=== PATIENT | male | born 1955 | race African-American/Black ===

== ENCOUNTER 2017-04-18 11:47 | Inpatient (IN) ==
[2017-04-18] MEDS ORDERED: ASPIRIN PO STA (12:12)
[2017-04-18 12:21] LABS: MANUAL DIFF NEEDED? NO
--- NOTE | 2017-04-18 12:26 | EKG Report ---
Test Performed on : 04/18/2017 11:58:56 AM Test Reason : chest pain Blood Pressure : / mmHG Vent. Rate : 078 BPM Atrial Rate : 078 BPM P-R Int : 146 ms QRS Dur : 084 ms QT Int : 354 ms P-R-T Axes : 079 073 081 degrees QTc Int : 403 ms Normal sinus rhythm. with sinus arrhythmia. ST elevation, consider early repolarization, pericarditis, or injury Abnormal ECG When compared with ECG of 11-NOV-2016 14:08, No significant change was found Unconfirmed Result
[2017-04-18 12:27] LABS: BASO% 0.2 % (0.0-0.8); EOS# 0.17 X1000 (0.0-0.7); EOS% 4.1 % (0.0-10.0); HEMATOCRIT 46.9 % (42.0-52.0); HEMOGLOBIN 16.2 g/dL (14.0-18.0); LYMPH# 1.43 X1000 (1.2-3.4); LYMPH% 34.5 % (20.5-51.1); MCH 28.9 PG (27-31); MCHC 34.5 g/dL (33-37); MCV 83.6 FL (81-99); MONO# 0.61 X1000 (0.11-0.59); MONO% 14.7 % (1.7-9.3); MPV 10.9 FL (7.4-10.4); NEUT% 46.5 % (42.2-75.2); PLT 209 X1000 (130-400); RBC 5.61 XMIL (4.7-6.1)
--- NOTE | 2017-04-18 12:29 | Diag Imaging Result Doc PS360 ---
EXAM: CHEST-2 VIEWS HISTORY: CP TECHNIQUE: Two views COMPARISON: 03/11/2016 FINDINGS: The lungs are hyperexpanded. There is an increased AP diameter to the chest. There are large bulla bilaterally. Heart is not enlarged. The urinary vessels are small. No consolidation. IMPRESSION: Severe emphysema. Electronically signed by Desmond Domínguez 04/18/2017 12:27 PM
[2017-04-18 12:44] LABS: INR 0.99; PROTIME 10.4 Seconds (9.2-11.7); PTT 29.9 Seconds (22.0-36.0)
[2017-04-18 12:45] LABS: AGAP 12; ALBUMIN 4.6 g/dL (3.5-5.0); ALKALINE PHOSPHATASE 102 U/L (32-122); BUN 10 mg/dL (8-22); CALCIUM 9.7 mg/dL (8.8-10.2); CHLORIDE 100 mmol/L (98-107); COSMO 278; GOT 52 U/L (10-34); GPT 50 U/L (10-44); MAGNESIUM 1.9 mg/dL (1.5-2.7); POTASSIUM 4.3 mmol/L (3.5-5.1); SODIUM 140 mmol/L (136-145); TCO2 28 mmol/L (25-35); TOTAL BILIRUBIN 0.61 mg/dL (0.20-1.00); TOTAL PROTEIN 8.6 g/dL (6.3-8.3)
[2017-04-18 12:46] LABS: CK PROFILE 232 U/L (24-204)
[2017-04-18 13:00] LABS: CK INDEX 1.2 (0.0-2.5); CK-MB 2.69 ng/mL (0.0-5.0)
--- NOTE | 2017-04-18 13:04 | PROVIDER DOCUMENTATION ---
This chart was entered by Faizan Rangel Scribe, acting as scribe for Lloyd Barillas MD. HPI-Chest Pain - General Chief Complaint: Chest Pain Stated Complaint: cp Time Seen by Provider: 04/18/17 12:03 Source: patient Allergies/Adverse Reactions: Patient Allergies Allergy/AdvReac Type Severity Reaction Status Date / Time No Known Allergies Allergy Verified 03/11/16 10:38 Home Medications: Home Medication List Medication Instructions Recorded Confirmed Last Taken Type NK [No Home Medications] 04/18/17 04/18/17 Unknown History - History of Present Illness-CP Nature of Presenting Problem: Patient is a 61 y/o M that presents to the ER with chest pain( substernal) x 2 days. Patient reports feeling pressure type pain. Reports shortness of breath. Denies n/v, dizziness, or fever/chills. Smokes daily and has cardiac history but unsure what it is Location: reports: substernal Chest Pain Radiation: reports: no radiation Quality of Pain: reports: pressure Severity in ED: moderate Onset/Duration: abrupt, 2 days ago Timing: improving, intermittent Context/Activities at Onset: reports: none Modifying Factors: improves with: nothing Associated Symptoms: reports: shortness of breath. denies: abdominal pain, fever/chills, nausea, vomiting Nitro Today/Relief: no nitro taken today Aspirin Treatment Today: 325 mg x 1, provided by ED Prior Chest Pain/Cardiac Workup: reports: other (prior but patient doesnt' know what heart history he has) Similar Symptoms Previously?: Yes Recently Seen Here or By Another Healthcare Provider: No Review of Systems - Adult - REVIEW OF SYSTEMS - ADULT Constitutional: denies: chills, fever Eyes: reports: no symptoms reported Ears, Nose, Mouth & Throat: reports: no symptoms reported Cardiovascular: reports: chest pain. denies: orthopnea, palpitations, syncope Respiratory: reports: shortness of breath. denies: cough, wheezing Gastrointestinal: denies: abdominal pain, nausea, vomiting Genitourinary: reports: no symptoms reported Musculoskeletal: reports: no symptoms reported Integumentary: reports: no symptoms reported Neurological: denies: dizziness/vertigo, headache/migraines Psychiatric: reports: no symptoms reported Endocrine: reports: no symptoms reported Hematologic/Lymphatic: reports: no symptoms reported Allergic/Immunologic: reports: no symptoms reported All Other Systems: Reviewed and Negative Past History - Adult - PAST MEDICAL HISTORY-ADULT Review of Records: reports: Old Records Reviewed, Nursing Assessment Review, Medications Reviewed Cardiovascular: reports: HTN Respiratory: reports: asthma, COPD - PRIOR SURGERIES/PROCEDURES Surgical/Procedure History: reports: none - PRIOR HOSPITALIZATIONS Prior Hospitalizations: reports: none - IMMUNIZATION STATUS Childhood Immunizations: See Nurse Assessment Flu Vaccine: See Nurse Assessment - FAMILY HISTORY Family History: reviewed, not pertinent - SOCIAL HISTORY Smoking: cigarettes, greater than 1 pack/day Alcohol Use Frequency: occasionally Living Situation: family Physical Exam-General - PHYSICAL EXAM-ADULT Initial Vital Signs Reviewed: Yes - CONSTITUTIONAL General Appearance: alert, no apparent distress - EYES Eyes: PERRL/EOMI, pink conjunctivae - HEAD, EARS, NOSE, MOUTH & THROAT HENMT: normocephalic/atraumatic, moist mucous membranes, normal ENT inspection - NECK Neck: non-tender, full range of motion, normal inspection - RESPIRATORY Respiratory: chest non-tender, lungs clear, normal breath sounds, no respiratory distress, no accessory muscle use - CARDIOVASCULAR Cardiovascular: regular rate, rhythm, no edema, no JVD, no murmur - GASTROINTESTINAL (ABDOMEN) Abdominal Exam: normal bowel sounds, non tender, soft - MUSCULOSKELETAL Back Exam: no CVA tenderness, no vertebral tenderness Extremity: normal range of motion, normal inspection, no pedal edema, normal capillary refill, pelvis stable - SKIN Integumentary: normal color, warm/dry - NEUROLOGIC Neurologic: housekeeping staff II-XII nml as tested, no motor/sensory deficits - PSYCHIATRIC Psych/Mental Status: normal mood/affect, normal thought content, normal thought process, oriented x 3 Progress - PLAN OF CARE/RESULTS Progress/Plan/Lab Results: Vital Signs - 8 hr 04/18/17 11:51 Temperature 97.9 F Pulse Rate 82 Respiratory Rate 20 Blood Pressure 114/76 O2 Sat by Pulse Oximetry 94 L Laboratory Results - last 24 hr 04/18/17 04/18/17 04/18/17 12:10 12:10 12:10 WBC 4.14 L RBC 5.61 Hgb 16.2 Hct 46.9 MCV 83.6 MCH 28.9 MCHC 34.5 RDW Std Deviation 14.8 H Plt Count 209 MPV 10.9 H Immature Gran % (Auto) 0.0 Neut % (Auto) 46.5 Lymph % (Auto) 34.5 [place] % (Auto) 14.7 H Eos % (Auto) 4.1 Baso % (Auto) 0.2 Immature Gran # (Auto) 0.00 Neut # (Auto) 1.92 Lymph # (Auto) 1.43 [place] # (Auto) 0.61 H Eos # (Auto) 0.17 Baso # (Auto) 0.01 PT 10.4 INR 0.99 PTT (Actin FS) 29.9 Sodium 140 Potassium 4.3 Chloride 100 Carbon Dioxide 28 Anion Gap 12 BUN 10 Creatinine 0.8 Estimated GFR/1.73 m2 > 60 BUN/Creatinine Ratio 13 Glucose 92 Calculated Osmolality 278 Calcium 9.7 Magnesium 1.9 Total Bilirubin 0.61 AST 52 H ALT 50 H Alkaline Phosphatase 102 Creatine Kinase 232 H Troponin T Total Protein 8.6 H Albumin 4.6 Globulin 4.0 Albumin/Globulin Ratio 1.1 04/18/17 12:10 WBC RBC Hgb Hct MCV MCH MCHC RDW Std Deviation Plt Count MPV Immature Gran % (Auto) Neut % (Auto) Lymph % (Auto) [place] % (Auto) Eos % (Auto) Baso % (Auto) Immature Gran # (Auto) Neut # (Auto) Lymph # (Auto) [place] # (Auto) Eos # (Auto) Baso # (Auto) PT INR PTT (Actin FS) Sodium Potassium Chloride Carbon Dioxide Anion Gap BUN Creatinine Estimated GFR/1.73 m2 BUN/Creatinine Ratio Glucose Calculated Osmolality Calcium Magnesium Total Bilirubin AST ALT Alkaline Phosphatase Creatine Kinase Troponin T < 0.010 Total Protein Albumin Globulin Albumin/Globulin Ratio Orders Category Date Time Status Cardiac Monitoring DIRECTED Care 04/18/17 12:13 Active Saline Loc NOW Care 04/18/17 12:13 Active CHEST-2 VIEWS [RAD] Stat Exams 04/18/17 12:13 Completed CBC WITH ELECTRONIC DIFF [HEME] Stat Lab 04/18/17 12:10 Completed CK PROFILE [SP CHEM] Stat Lab 04/18/17 12:10 Results COMPREHENSIVE METABOLIC PANEL [CHEM] Stat Lab 04/18/17 12:10 Results D-DIMER [CHEM] Stat Lab 04/18/17 12:10 Received MAGNESIUM [CHEM] Stat Lab 04/18/17 12:10 Results PRO B-NATRIURETIC PEPTIDE Stat Lab 04/18/17 12:10 Received PROTIME WITH INR [COAG] Stat Lab 04/18/17 12:10 Completed PTT [COAG] Stat Lab 04/18/17 12:10 Completed TROPONIN T Stat Lab 04/18/17 12:10 Completed Aspirin Med 04/18/17 12:12 Discontinued 325 mg PO STAT STA EKG [EKG] Stat Ther 04/18/17 11:54 Draft Vital Signs Temp Pulse Resp BP Pulse Ox 04/18/17 11:51 97.9 F 82 20 114/76 94 L No Known Allergies Allergy (Verified 03/11/16 10:38) NK [No Home Medications] 04/18/17 Laboratory 04/18/17 04/18/17 04/18/17 12:10 12:10 12:10 WBC RBC Hgb Hct MCV MCH MCHC RDW Std Deviation Plt Count MPV Immature Gran % (Auto) Neut % (Auto) Lymph % (Auto) [place] % (Auto) Eos % (Auto) Baso % (Auto) Immature Gran # (Auto) Neut # (Auto) Lymph # (Auto) [place] # (Auto) Eos # (Auto) Baso # (Auto) PT 10.4 INR 0.99 PTT (Actin FS) 29.9 Sodium 140 Potassium 4.3 Chloride 100 Carbon Dioxide 28 Anion Gap 12 BUN 10 Creatinine 0.8 Estimated GFR/1.73 m2 > 60 BUN/Creatinine Ratio 13 Glucose 92 Calculated Osmolality 278 Calcium 9.7 Magnesium 1.9 Total Bilirubin 0.61 AST 52 H ALT 50 H Alkaline Phosphatase 102 Creatine Kinase 232 H Troponin T < 0.010 Total Protein 8.6 H Albumin 4.6 Globulin 4.0 Albumin/Globulin Ratio 1.1 04/18/17 12:10 WBC 4.14 L RBC 5.61 Hgb 16.2 Hct 46.9 MCV 83.6 MCH 28.9 MCHC 34.5 RDW Std Deviation 14.8 H Plt Count 209 MPV 10.9 H Immature Gran % (Auto) 0.0 Neut % (Auto) 46.5 Lymph % (Auto) 34.5 [place] % (Auto) 14.7 H Eos % (Auto) 4.1 Baso % (Auto) 0.2 Immature Gran # (Auto) 0.00 Neut # (Auto) 1.92 Lymph # (Auto) 1.43 [place] # (Auto) 0.61 H Eos # (Auto) 0.17 Baso # (Auto) 0.01 PT INR PTT (Actin FS) Sodium Potassium Chloride Carbon Dioxide Anion Gap BUN Creatinine Estimated GFR/1.73 m2 BUN/Creatinine Ratio Glucose Calculated Osmolality Calcium Magnesium Total Bilirubin AST ALT Alkaline Phosphatase Creatine Kinase Troponin T Total Protein Albumin Globulin Albumin/Globulin Ratio Result Diagrams: 04/18/17 12:10 04/18/17 12:10 - EKG 1 Time of EKG reading by physician:: 12:03 EKG Read and Signed by:: Lloyd Barillas EKG Interpretation (*Must complete 3 of following elements*): Abnormal Rate: 78 Rhythm: NSR [place]: normal QRS: normal VA Interval: normal ST Wave: elevated (ST Lead II, III, AVF) - XRAY 1 XRAY Study: Chest Impression: Abnormal XRAY Interpretation: severe emphysema - CONSULTS/PCP/HOSPITALIST Notification #1 *Consult/PCP/Hospitalist*: Krish with Hospitalist Time Discussed: 12:58 Reason/Comments: accepted Consult Disposition: Will see in ED, Admit Departure - Departure Date of Disposition Decision: 04/18/17 Time of Disposition Decision: 12:58 DIAGNOSIS: ACS (acute coronary syndrome), Chest pain in adult Disposition: ADMITTED INPATIENT 09 Certified Medical Emergency: Emergent Condition: Stable Referrals and Follow-Ups: None,PCP [Clinical Support] - - Critical Care Note This patient required my direct & personal management of CC.: No Attestation - Physician/ DREA Attestation The physician spent face to face time with patient:: Yes Advanced Practice Provider documentation review:: Supervising physician onsite and consulted in the evaluation and care of this patient. The physician did have a face to face encounter with the patient. This chart was documented by the indicated scribe, (Faizan Rangel, Terrance) and accurately reflects the services I performed and decisions made by me, Lloyd Barillas MD, as attested by the provider's signature.
[2017-04-18] MEDS ORDERED: ZOFRAN IV PRN (13:32)
[2017-04-18] MEDS ORDERED: TYLENOL PO PRN (13:32)
[2017-04-18] MEDS ORDERED: DUONEB (A & A) INH PRN (14:33)
[2017-04-18] MEDS ORDERED: ATIVAN IV PRN (14:35)
[2017-04-18] MEDS ORDERED: M.V.I.-12 10 ML, FOLIC ACID 1 MG, MAGNESIUM SULFATE 1 GM, THIAMINE 100 MG in NS 1,000 ML IV SCH (14:45)
[2017-04-18 15:33] LABS: FREE T4 0.82 ng/dL (0.93-1.70)
--- NOTE | 2017-04-18 15:46 | HISTORY AND PHYSICAL ---
CHIEF COMPLAINT: Chest pain. HISTORY OF PRESENT ILLNESS: Mr. Simmons is a 61-year-old gentleman with a history of long-standing alcohol and nicotine dependence as well as COPD with medical noncompliance who comes to the hospital today with 2 days of progressively worsening chest pain that began at rest. This is not associated with diaphoresis or nausea or vomiting, the pain is epigastric to midsternal, intermittent in nature and nonradiating. He states that he has chronic shortness of breath because of his COPD which is untreated, he is supposed to be wearing oxygen which he does not, he continues to smoke 2 packs of cigarettes a day and drinks around half a case of beer a day. He denies any fever, chills, cough or congestion. No overt abdominal pain , diarrhea. He does report urinary hesitancy. No lower extremity edema. No PND. When he got to the ER he had labs and diagnostics done. EKG showed sinus rhythm with diffuse ST-elevation likely consistent with early repolarization and unchanged from previous EKGs. His labs show alcohol level of 72 with elevated transaminases and a CK of 232 with normal troponin. As such, he is going to be admitted for further treatment and evaluation on observation basis. PAST MEDICAL HISTORY: 1. COPD. 2. Alcohol dependence. 3. Nicotine dependence. 4. Medical noncompliance. SURGICAL HISTORY: None. SOCIAL HISTORY: Patient smokes 2 packs a day. He drinks half a case of beer a day and occasional liquor. He smokes occasional marijuana. He is . His is not at the bedside currently. FAMILY HISTORY: Noncontributory. REVIEW OF SYSTEMS: Fourteen-point review of systems obtained and found to be negative with the exception of the HPI. HOME MEDICATIONS: None. ALLERGIES: None. PHYSICAL EXAMINATION: VITAL SIGNS: Blood pressure 135/89, heart rate 85, respiratory rate 18, O2 saturation 95% on room air, temperature is 98.2 degrees. GENERAL: This is a frail and emaciated appearing 61-year-old gentleman lying in hospital bed in no acute distress. NEUROLOGIC: Nonfocal. HEENT: Head is atraumatic and normocephalic. His pupils are equal, round, and reactive to light. Oral mucosa is dry. Trachea is midline. There is no JVD. CHEST: Extremely diminished throughout but no adventitious lung sounds. CV: Regular rate and rhythm. S1-S2 is noted. No murmurs. GI: Epigastric tenderness to palpation. Belly is soft and nondistended. Bowel sounds are hypoactive. EXTREMITIES: No edema, clubbing or cyanosis. Pulses are palpable bilaterally. DIAGNOSTIC DATA: Chest x-ray shows severe emphysema, no acute changes. EKG normal sinus rhythm with diffuse ST-elevation unchanged from previous EKG. WBC 4.14, hemoglobin 16.2, hematocrit 46.9, platelet count 209,000, INR 0.99, PT 10.4, D-dimer negative. Sodium 140, potassium 4.3, chloride 100, CO2 28, anion gap 12, BUN 10, creatinine 0.8, glucose 92, calcium 9.7, magnesium 1.9. Total bilirubin 0.61, AST 52, ALT 50, alkaline phosphatase 102, CK 232, troponin negative. Albumin is 4.6. Alcohol level 72. ASSESSMENT AND PLAN: 1. Chest pain: Atypical, bordering on noncardiac. More than likely this is gastritis or peptic ulcer disease secondary to alcohol and nicotine dependence. We will rule out myocardial infarction with cardiac enzymes, check an echocardiogram and make sure he is on aspirin. Given that this is likely GI in nature, we are going to add Protonix b.i.d. and IV fluids and monitor. He would likely benefit from an EGD but, as he denies any melena or hematemesis, this can be done outpatient. 2. Chronic obstructive pulmonary disease: He does not appear to be in exacerbation, lungs are clear, chest x-ray does not show anything acute and pulse ox is within normal limits. We will continue his oxygen and add DuoNeb therapy. 3. Alcohol and nicotine dependence: Patient has been highly advised to quit drinking and smoking. We will continue daily cessation education. We will add a Librium taper and p.r.n. IV Ativan as well as a nicotine patch and a banana bag. We will check folate , B 12 and thyroid function in the morning. 4. Deep vein thrombosis prophylaxis with Lovenox. Further recommendations to follow. Patient seen and examined by me face to face, all the lab work, vitals signs, images were reviewed, Patient has a past medical history of alcohol and tobacco abuse, he has been felling short of breath lately, epigastric pain, I don't think this is a cardiac like pain but we will follow the enzymes, I will talk to the hospital social worker about sending this patient to a detox center , I agree with the assessment and plan, Sergey Ty MD Dictated by CLAUDIA Umaña for Sergey Ogden MD cc: CLAUDIA Umaña MD MTDD
[2017-04-18 16:03] LABS: CK INDEX 1.2 (0.0-2.5); CK-MB 2.53 ng/mL (0.0-5.0)
[2017-04-18] MEDS: NICODERM PATCH TD SCH (16:11)
[2017-04-18] MEDS: SODIUM CHLORIDE 0.9% INJ SCH (16:12)
[2017-04-18] MEDS: PROTONIX IV SCH (16:12)
[2017-04-18] MEDS: LIBRIUM PO SCH ×2 (16:12→22:19)
[2017-04-18 16:59] LABS: URINE CULTURE NEEDED? NO; URINE MICRO REVIEW NEEDED? NO; URINE SOURCE CLEAN CATCH
[2017-04-18 17:06] LABS: BILIRUBIN URINE NEGATIVE (NEGATIVE); BLOOD URINE NEGATIVE (NEGATIVE); COLOR YELLOW; GLUCOSE URINE NEGATIVE (NEGATIVE); LEUKOCYTES URINE NEGATIVE (NEGATIVE); NITRITE URINE NEGATIVE (NEGATIVE); PROTEIN URINE NEGATIVE (NEGATIVE); SP GRAVITY URINE 1.012; TURBIDITY URINE CLEAR (CLEAR); UR EPITHELIAL CELLS <10 /HPF (<10); URINE BACTERIA NEGATIVE /HPF; URINE RBC <10 /HPF (<10); URINE WBC <10 /HPF (<10); UROBILINOGEN URINE NORMAL (NORMAL)
--- NOTE | 2017-04-18 17:08 | ECHO REPORT ---
ORDER DATE: 04/18/2017 INDICATION: Chest pain. FINDINGS: 1. The right atrium appears normal in size. 2. There is mild tricuspid regurgitation. The RV systolic pressure is measured at 37. 3. There is very poor visualization of the right ventricle. On some images it does appear to be somewhat enlarged. RV systolic function appears to be preserved, but again is very poorly visualized. 4. No significant pulmonic insufficiency. 5. Normal left atrial size at 2.6. 6. No mitral valve prolapse. Trace mitral regurgitation. 7. Normal LV size, end-diastolic dimension of 5.2. Normal wall thicknesses with a posterior and interventricular septal thickness of 0.7 cm each. Normal LV systolic function. Estimated EF is greater 55%. This is a very difficult quality study with very poor endocardial border resolution. Segmental wall motion analysis is extremely poor. 8. The aortic valve appears to open well with no evidence of significant stenosis or insufficiency. 9. The aorta appears normal in visualized segments. 10. No pericardial effusion identified. cc: MD Lino Cunha CRNP
[2017-04-18 17:28] LABS: UR AMPHETAMINES QUAL NONE DETECTED (NONE DETECT); UR BARBITUATES QUAL NONE DETECTED (NONE DETECT); UR BENZODIAZEPIN QUAL NONE DETECTED (NONE DETECT); UR CANNABINOIDS QUAL PRESUMPTIVE POSITIVE (NONE DETECT); UR COCAINE QUAL NONE DETECTED (NONE DETECT); UR METHADONE QUAL NONE DETECTED (NONE DETECT); UR OPIATES QUAL NONE DETECTED (NONE DETECT); UR OXYCODONE QUAL NONE DETECTED (NONE DETECT); UR PCP QUAL NONE DETECTED (NONE DETECT)
[2017-04-18] MEDS: DUONEB (A & A) INH SCH ×3 (17:33→23:30)
[2017-04-18] MEDS: M.V.I.-12 10 ML, FOLIC ACID 1 MG, MAGNESIUM SULFATE 1 GM, THIAMINE 100 MG in NS 1,000 ML IV SCH (22:18)
[2017-04-19] MEDS: DUONEB (A & A) INH SCH ×6 (03:39→23:33)
[2017-04-19] MEDS: PROTONIX IV SCH ×2 (05:07→14:02)
[2017-04-19] MEDS: SODIUM CHLORIDE 0.9% INJ SCH ×2 (05:07→14:02)
--- NOTE | 2017-04-19 05:20 | EKG Report ---
Test Performed on : 04/18/2017 8:55:19 PM Test Reason : possible AFIB on tele Blood Pressure : / mmHG Vent. Rate : 073 BPM Atrial Rate : 073 BPM P-R Int : 138 ms QRS Dur : 088 ms QT Int : 368 ms P-R-T Axes : 074 082 083 degrees QTc Int : 405 ms Normal sinus rhythm. ST elevation, consider early repolarization, pericarditis, or injury Abnormal ECG When compared with ECG of 18-APR-2017 11:58, (Unconfirmed) No significant change was found Confirmed by Shraddha HUSSEIN, Jake Carballo ([id number]) on 04/19/2017 10:03:46 AM
[2017-04-19 06:16] LABS: HEMATOCRIT 42.7 % (42.0-52.0); HEMOGLOBIN 14.4 g/dL (14.0-18.0); MCH 29.3 PG (27-31); MCHC 33.7 g/dL (33-37); MCV 86.8 FL (81-99); MPV 11.1 FL (7.4-10.4); RBC 4.92 XMIL (4.7-6.1)
[2017-04-19 06:53] LABS: AGAP 12; ALBUMIN 3.8 g/dL (3.5-5.0); ALKALINE PHOSPHATASE 84 U/L (32-122); BUN 14 mg/dL (8-22); CALCIUM 8.8 mg/dL (8.8-10.2); CHLORIDE 100 mmol/L (98-107); COSMO 278; GOT 39 U/L (10-34); GPT 38 U/L (10-44); HDL 89 mg/dL (35-55); LDL 65 mg/dL; POTASSIUM 3.9 mmol/L (3.5-5.1); SODIUM 139 mmol/L (136-145); TCO2 27 mmol/L (25-35); TOTAL BILIRUBIN 0.53 mg/dL (0.20-1.00); TOTAL PROTEIN 7.1 g/dL (6.3-8.3); TRIGLYCERIDES 48 mg/dL (39-160); VLDL 10 mg/dL
[2017-04-19] MEDS: NICODERM PATCH TD SCH (09:38)
[2017-04-19] MEDS: M.V.I.-12 10 ML, FOLIC ACID 1 MG, MAGNESIUM SULFATE 1 GM, THIAMINE 100 MG in NS 1,000 ML IV SCH (09:38)
[2017-04-19] MEDS: ASPIRIN PO SCH (09:38)
[2017-04-19] MEDS: LIBRIUM PO SCH ×3 (09:38→22:54)
[2017-04-19] MEDS: LOVENOX SUBQ SCH (09:38)
[2017-04-19 12:37] LABS: HEPATITIS PROFILE ACUTE SEE COMMENTS
--- NOTE | 2017-04-19 14:07 | PROGRESS NOTE ---
DATE: 04/19/2017 SUBJECTIVE: This patient states that he is feeling better but he is still complaining of mild chest pain, substernal, nonradiating, not related with respiration, he does have also epigastric pain but he says the pain is in the middle of the chest and is pressure like. This patient is a chronic smoker and alcoholic, he is 61-year-old, so I would like to rule out an acute coronary syndrome. I will ask for a stress test. OBJECTIVE: Vital Signs: Temperature 98.5 degrees, pulse 74, respiratory rate 18, blood pressure 128/75, oxygen saturation 96% on 2 L of nasal cannula. HEENT: Normocephalic. No trauma. PERRLA. Neck: Supple. No JVD. No masses. Central trachea. Chest: Decreased breath sounds globally. Prolonged expiratory phase. Cardiovascular: Regular rate and rhythm. Abdomen: Soft, mild tenderness to palpation at the level of the epigastric area. Extremities: No edema. No clubbing. No cyanosis. Neurological: The patient is alert and oriented x3. No focal deficits. LABORATORY: WBC 4.3, hemoglobin 14.4, hematocrit 42.7, platelets 169,000. Sodium 139, potassium 3.9, chloride 100, bicarbonate 27, BUN 14, creatinine 0.8, glucose 93, calcium 8.8, phosphorus 2.2. Albumin 3.8. ASSESSMENT AND PLAN: 1. Chest pain, substernal pressure-like, he is a heavy smoker and also he is 61 years old. He has been having chest pain since yesterday so I would like to rule out an acute coronary syndrome. I will do an EKG and a stress test. Troponins have been negative so far. I will ask for a new one right now. 2. Chronic obstructive pulmonary disease not in exacerbation but I will continue with the same management. He has barrel chest, prolonged expiratory phase and decreased bowel sounds globally. 3. Alcohol and nicotine dependence. This patient has been highly advised to quit drinking and smoking. I will continue with daily cessation education. I will continue with Librium and nicotine patch as well. 4. Deep vein thrombosis prophylaxis with Lovenox. I talked to the patient about sending him to a detox center, he is willing to cooperate and he is willing to go to the center. I have talked to the case management social worker and she will set up everything for the patient. cc: Sergey Ogden MD
[2017-04-20] MEDS: DUONEB (A & A) INH SCH ×6 (04:02→23:02)
[2017-04-20 06:20] LABS: HEMATOCRIT 44.3 % (42.0-52.0); HEMOGLOBIN 14.7 g/dL (14.0-18.0); MCH 29.5 PG (27-31); MCHC 33.2 g/dL (33-37); MCV 88.8 FL (81-99); MPV 10.6 FL (7.4-10.4); RBC 4.99 XMIL (4.7-6.1)
[2017-04-20] MEDS: SODIUM CHLORIDE 0.9% INJ SCH (06:34)
[2017-04-20] MEDS: PROTONIX IV SCH ×2 (06:34→16:23)
[2017-04-20] MEDS: LIBRIUM PO SCH ×3 (06:34→22:27)
[2017-04-20 07:05] LABS: AGAP 10; ALBUMIN 3.8 g/dL (3.5-5.0); ALKALINE PHOSPHATASE 82 U/L (32-122); BUN 9 mg/dL (8-22); CHLORIDE 105 mmol/L (98-107); COSMO 285; GOT 45 U/L (10-34); GPT 37 U/L (10-44); POTASSIUM 4.6 mmol/L (3.5-5.1); SODIUM 144 mmol/L (136-145); TCO2 29 mmol/L (25-35); TOTAL BILIRUBIN 0.65 mg/dL (0.20-1.00); TOTAL PROTEIN 7.2 g/dL (6.3-8.3)
[2017-04-20] MEDS: M.V.I.-12 10 ML, FOLIC ACID 1 MG, MAGNESIUM SULFATE 1 GM, THIAMINE 100 MG in NS 1,000 ML IV SCH (08:30)
[2017-04-20] MEDS: LOVENOX SUBQ SCH (09:00)
[2017-04-20] MEDS: NICODERM PATCH TD SCH (09:00)
[2017-04-20 12:44] LABS: HCV BY PCR SEE COMMENTS; HCV CHARGE YES
[2017-04-20] MEDS ORDERED: DOBUTAMINE 250 MG/D5W 250 MG/250 ML IV.SOLN ONE (14:03)
[2017-04-20] MEDS ORDERED: NS 500 ML ONE (14:05)
[2017-04-20] MEDS ORDERED: ATROPINE SYRINGE ONE (14:35)
--- NOTE | 2017-04-20 15:40 | PROGRESS NOTE ---
DATE: 04/20/2017 SUBJECTIVE: This patient states that he is feeling fine, but he looks more tired today, more restless. Even though is completely alert and oriented x3, he does not look as confused. He is not having diaphoresis, chest pain, or shortness of breath. Today he is scheduled to get a stress test and I am not quite sure if he going to complete this. The [facility] came over here to evaluate him pending suggestions. Hopefully, they will take him because he is willing to go to be helped. OBJECTIVE: Vital Signs: Temperature 97.7 degrees, pulse 67, respiratory rate 18, blood pressure 136/87, O2 saturation 100% on 2 L of nasal cannula. HEENT: Head normocephalic. No trauma. PERRLA. Neck: Supple. No jugular venous distention. No masses. Central trachea. Chest: Decreased breath sounds globally. Prolonged expiatory phase. Cardiovascular: Regular rate and rhythm. Abdomen: Soft. Mild tenderness to palpation at the level of the epigastric area. Extremities: No edema. No clubbing. No cyanosis. Neurological Examination: The patient is alert and oriented x3. No focal deficits, just generalized weakness mostly with physical activity. LABORATORY: WBC 3.9, hemoglobin 14.7, hematocrit 44.3, platelets 161,000. Sodium 144, potassium 4.6, chloride 105, bicarbonate 29. BUN 9, creatinine 0.9, glucose 93, calcium 9, albumin 3.8. Hepatitis panel positive for hepatitis C. ASSESSMENT AND PLAN: 1. Chest pain, substernal, pressure-like. He is a heavy smoker and also he is [id number]. He has been having chest pain since 2 days ago and I would like to rule out acute coronary syndrome with an EKG and stress test. Troponin has been negative. 2. Chronic obstructive pulmonary disease, not in exacerbation. I will continue with the same management. He has barreled chest, prolonged expiatory phase, and decreased bowel sounds globally. 3. Alcohol and nicotine dependence. This patient has been highly advised to quit drinking and smoking. I will continue with daily cessation education. I will continue with Librium and nicotine patch as well. [facility] apparently evaluated this patient, pending recommendations. 4. Deep vein thrombosis prophylaxis with Lovenox. 5. Physical deconditioning. Continue with physical therapy. 6. Hepatitis C. I am not quite sure if this patient has a past medical history of hepatitis C. He does not remember at this moment, but I will ask him tomorrow again. cc: Sergey Ogden MD
[2017-04-20] MEDS: ASPIRIN PO SCH ×2 (16:22→16:25)
[2017-04-21] MEDS: DUONEB (A & A) INH SCH ×3 (02:35→11:05)
[2017-04-21] MEDS: PROTONIX IV SCH (03:34)
[2017-04-21] MEDS: SODIUM CHLORIDE 0.9% INJ SCH (03:34)
[2017-04-21 05:56] LABS: HEMATOCRIT 41.6 % (42.0-52.0); HEMOGLOBIN 13.7 g/dL (14.0-18.0); MCH 29.4 PG (27-31); MCHC 32.9 g/dL (33-37); MCV 89.3 FL (81-99); MPV 10.9 FL (7.4-10.4); RBC 4.66 XMIL (4.7-6.1)
[2017-04-21 06:15] LABS: AGAP 9; ALBUMIN 3.6 g/dL (3.5-5.0); ALKALINE PHOSPHATASE 80 U/L (32-122); BUN 10 mg/dL (8-22); CALCIUM 9.1 mg/dL (8.8-10.2); CHLORIDE 108 mmol/L (98-107); COSMO 283; GOT 53 U/L (10-34); GPT 44 U/L (10-44); POTASSIUM 4.2 mmol/L (3.5-5.1); SODIUM 143 mmol/L (136-145); TCO2 26 mmol/L (25-35); TOTAL BILIRUBIN 0.45 mg/dL (0.20-1.00); TOTAL PROTEIN 6.7 g/dL (6.3-8.3)
[2017-04-21] MEDS: LIBRIUM PO SCH (06:30)
[2017-04-21] MEDS: NICODERM PATCH TD SCH (08:29)
[2017-04-21] MEDS: LOVENOX SUBQ SCH (08:29)
[2017-04-21] MEDS: M.V.I.-12 10 ML, FOLIC ACID 1 MG, MAGNESIUM SULFATE 1 GM, THIAMINE 100 MG in NS 1,000 ML IV SCH (08:29)
[2017-04-21] MEDS: ASPIRIN PO SCH (08:29)
[2017-04-21 11:06] VITALS: BP 125/82
[2017-04-21] MEDS ORDERED: VENTOLIN HFA INH PRN (14:06)
--- NOTE | 2017-04-21 18:09 | Diag Imaging Result Document ---
PROCEDURE NAME: MYOCARDIAL PERF SCAN, STR/REST - 04/20/2017 STUDY: This is a rest-stress dobutamine/atropine myocardial perfusion study. INDICATION: A 61-year-old male with chest pain. REQUESTING PHYSICIAN: Hospitalist. DESCRIPTION: The patient came into the [facility], received a rest injection of technetium 99 sestamibi 10.9 millicuries. Multiple tomographic views of the cardiac structure were obtained at rest. Subsequently the patient underwent a dobutamine/atropine protocol. At peak infusion, injected with technetium 99 sestamibi 30.8 millicuries. Multiple tomographic views of the cardiac structure were obtained following the completion of the protocol. SUMMARY OF ELECTROCARDIOGRAPHIC PORTION OF STUDY: Resting electrocardiogram shows sinus rhythm, rate is 68 beats per minute. Resting blood pressure 128/97. Resting ECG shows early repolarization abnormality. During the infusion of dobutamine, the patient received a total of 17.05 mg of dobutamine over 10 minutes and 40 seconds. Maximum infusion rate was 40 mcg per kg per minute. The patient also received 0.3 mg of atropine. The heart rate reached a maximum of 141 beats per minute, representing 88% of maximum predicted heart rate for the patient's age. Peak blood pressure was 181/83. Peak infusion ECG showed sinus tachycardia with no ischemic ST-T changes. The patient reported no chest pain, shortness of breath, or palpitations. Some PVCs were noted. Following the completion of the infusion, the heart rate and blood pressure returned back to baseline. The patient was injected with radiotracer at the peak of the infusion. The ST segment actually became more normal as the heart rate increased and remained normal for several minutes into the recovery phase until it returned back to the baseline which is slightly elevated as in early repolarization. The level of stress based on the double product of peak heart rate times peak blood pressure was good at 25,500. IMPRESSION: In summary, the electrocardiographic response to dobutamine plus atropine is negative for ischemia. SUMMARY OF MYOCARDIAL PERFUSION PORTION OF STUDY: Poststress tomographic views of the left ventricle showed a mild to moderately extensive inferoseptal defect. There is also a focal apical defect. The rest images showed that this defect is fixed. The polar plots revealed the same. There is a suggestion of an inferoseptal scar. The possibility of attenuation artifact cannot be entirely excluded. Gated SPECT shows preserved ejection fraction, estimated at 55% with normal ventricular volumes utilizing the [employer] protocol. Using the [employer] protocol, the ejection fraction is estimated at 42% with wall motion abnormality at the level of the septum. The lung-heart ratio is normal. TID is slightly elevated at 1.06. IMPRESSION: 1. In summary, the electrocardiographic response to the dobutamine/atropine protocol is negative for ischemia. The patient has an early repolarization pattern. It gets normal as the heart rate increases. That is nonspecific. 2. Probably normal poststress myocardial perfusion scan. There is no scintigraphic evidence of pharmacologically induced myocardial ischemia utilizing the dobutamine/atropine protocol. A small to medium size, mild to moderate in severity, inferoseptal and apical anterior defect probably represents attenuation and reconstruction artifact. The possibility of scar is considered to be less likely. No ischemia is identified. 3. Globally preserved ejection fraction estimated at 55% by the standard software. Ventricular volumes are normal. There is some atypical contractility of the septum. Clinical correlation recommended. cc: MD Sergey Moreno MD
[2017-04-22] MEDS ORDERED: SPIRIVA INH SCH (07:30)
[2017-04-22] MEDS ORDERED: ASPIRIN PO SCH (09:00)
--- NOTE | 2017-04-22 13:22 | DISCHARGE SUMMARY ---
ADMISSION DATE: 04/18/2017 DISCHARGE DATE: 04/21/2017 DISCHARGE DIAGNOSES: 1. Chest pain resolved. 2. Chronic obstructive pulmonary disease not in exacerbation. 3. Alcohol and nicotine dependence with mild withdrawal symptoms. 4. Hepatitis C. 5. Physical deconditioning, better. HOSPITAL COURSE: This is a 61-year-old male with a past medical history of alcohol and nicotine dependence as well as COPD and medical noncompliance. He came into the hospital with 2-day history of progressive worsening chest pain that began at rest no associated with nausea, vomiting, diaphoresis. He refers that the pain is midsternal but intermittent and nonradiating but when you examine his epigastric area is painful. He states that he has chronic shortness of breath secondary to COPD which is untreated. He is still smoking 2 packs of cigarettes a day and drinking also half a case of beer per day as well. He was admitted to the medical floor. I started this patient on Librium because he has a high risk of withdrawal symptoms and delirium tremens, we started with 50 mg q.6 hours we went down to 25 mg q.8 hours, this patient today was feeling much better. I offered the possibility of sending this patient to [place] [facility] but he refused, he wants to go home, he did not have a primary care doctor but we found 1 doctor for him, it would be Quintin Lares and he will see him on 05/02/2017 in the morning. Like I mentioned before, this patient was feeling much better. He was tolerating p.o. He was ambulating and he was not complaining of shortness of breath or chest pain. This is why decided to discharge this patient with an active follow up by his new primary care doctor. He will be discharged on Librium 25 mg p.o. daily q.8 hours for 1 week and then the dose will be decreased to 25 mg q.12 hours then the primary care doctor will take over this patient. PHYSICAL EXAM: Vital signs: Temperature 98.3 degrees, pulse 92, respiratory rate 17, blood pressure 125/82, O2 saturation 96 on room. HEENT: Head normocephalic. No trauma. PERRLA. Neck: Supple. No JVD. No masses. Central trachea. Chest: Clear to auscultation. No wheezing. No rales. Abdomen: Soft, mild tenderness to palpation at the level of the epigastric area. Extremities: No edema. No clubbing. No cyanosis. Neurologic: The patient is completely alert and oriented x3. No focal deficits. LABORATORY: WBC 4.08, hemoglobin 13.7, hematocrit 41.6, platelets 169,000. Sodium 143, potassium 4.2, chloride 108, bicarbonate 26, BUN 10, creatinine 0.8, glucose 89, calcium 9.1. DISCHARGE MEDICATIONS: Spiriva 1 puff inhaler daily, Librium 25 mg p.o. q.8 hours for 1 week and then q.12 hours, aspirin 81 mg p.o. daily, albuterol sulfate inhaler 2 puffs inhaler q.6 hours p.r.n. TIME DISCHARGING THIS PATIENT: At least 40 minutes. cc: Sergey Ogden MD
== END 2017-04-21 14:38 | disposition home or self-care (01) ==
LOC: ED 11:47 → 4N 11:47 → OBSVTOIN 13:18
PROVIDERS: ATTEND Internal Medicine